=== PATIENT | female | born 1975 | race Caucasian/White ===

== ENCOUNTER 2020-02-03 13:57 | Outpatient (CLI) | payer OTHER | END 2020-02-03 23:59 | disposition home or self-care (01) | LOC: WOUND 13:57 | PROVIDERS: ATTEND Family Medicine | DX: T24.211A Burn of second degree of right thigh, initial encounter (principal); T24.212A Burn of second degree of left thigh, initial encounter; T24.201A Burn of second degree of unspecified site of right lower limb, except ankle and foot, initial encounter; T31.0 Burns involving less than 10% of body surface; I10 Essential (primary) hypertension; E11.40 Type 2 diabetes mellitus with diabetic neuropathy, unspecified; E78.5 Hyperlipidemia, unspecified; E03.9 Hypothyroidism, unspecified; F17.210 Nicotine dependence, cigarettes, uncomplicated; X03.3XXA Fall due to controlled fire, not in building or structure, initial encounter; Y93.89 Activity, other specified; Y92.89 Other specified places as the place of occurrence of the external cause; Y99.8 Other external cause status | CPT/HCPCS: 16025; 16030; 99214 ==

== ENCOUNTER 2020-02-10 13:00 | Outpatient (CLI) | payer OTHER | END 2020-02-10 23:59 | disposition home or self-care (01) | LOC: WOUND 13:00 | PROVIDERS: ATTEND Family Medicine | DX: T24.312D Burn of third degree of left thigh, subsequent encounter (principal); T24.311D Burn of third degree of right thigh, subsequent encounter; T24.301D Burn of third degree of unspecified site of right lower limb, except ankle and foot, subsequent encounter; T31.0 Burns involving less than 10% of body surface; E11.40 Type 2 diabetes mellitus with diabetic neuropathy, unspecified; I10 Essential (primary) hypertension; E78.5 Hyperlipidemia, unspecified; E03.9 Hypothyroidism, unspecified; F17.210 Nicotine dependence, cigarettes, uncomplicated; X03.3XXD Fall due to controlled fire, not in building or structure, subsequent encounter | CPT/HCPCS: 16030; 97597; 97598 ==